=== PATIENT | female | born 1980 | race Caucasian/White ===

== ENCOUNTER 2019-01-24 15:29 | Emergency (ER) | payer OTHER ==
[~2019-01-24] VITALS: Ht 167.6 cm; Wt 68.0 kg
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
--- NOTE | 2019-01-24 15:45 | NUR ---
SEEN BY KAE ROBERTSON.
--- NOTE | 2019-01-24 15:58 | NUR ---
SEEN BY VOLODYMYR FROM [employer].
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
[2019-01-24] MEDS ORDERED: ALBUTEROL FS 2.5 MG/0.5 ML VIAL.NEB ONE (16:25)
[2019-01-24] MEDS ORDERED: ALBUTEROL FS 2.5 MG/3 ML VIAL.NEB ONE (16:25)
[2019-01-24] MEDS ORDERED: THIAMINE HCL 100 MG TABLET ONE (16:29)
[2019-01-24] MEDS ORDERED: FOLIC ACID 1 MG TABLET ONE (16:29)
[2019-01-24] MEDS ORDERED: THIAMINE HCL 100 MG TABLET PO ONE (16:30)
[2019-01-24] MEDS ORDERED: IV D5W 500 ML IV ONE (16:30)
[2019-01-24] MEDS ORDERED: predniSONE 20 MG TABLET ONE (16:30)
[2019-01-24] MEDS ORDERED: LORAZEPAM INJ 2 MG/ML VIAL ONE (16:30)
[2019-01-24] MEDS ORDERED: IV NS 0.9% 1,000 ML BAG IV ONE (16:30)
[2019-01-24] MEDS ORDERED: FOLIC ACID 1 MG TABLET PO ONE (16:30)
[2019-01-24] MEDS ORDERED: LORAZEPAM INJ 2 MG/ML VIAL IVP ONE (16:30)
[2019-01-24] MEDS ORDERED: predniSONE 20 MG TABLET PO ONE (16:30)
[2019-01-24] MEDS ORDERED: IPRATROPIUM NEB FS 0.5 MG/2.5 ML AMPUL.NEB NEB ONE (16:30)
[2019-01-24] MEDS ORDERED: ALBUTEROL FS 2.5 MG/3 ML VIAL.NEB NEB ONE (16:30)
[2019-01-24 16:31] LABS: BASOPHILS # (AUTO) 0.1 /CMM (0.0-0.2); BASOPHILS % (AUTO) 1.5 % (0.0-2.0); EOSINOPHILS % (AUTO) 1.1 % (0.0-6.0); HEMATOCRIT 37 % (33-45); HEMOGLOBIN 11.8 g/dL (11.5-14.8); LYMPHOCYTES # (AUTO) 1.8 /CMM (0.8-4.8); MEAN CORPUSCULAR HGB CONC 32 g/dl (31.0-36.0); MEAN CORPUSCULAR VOLUME 87 fL (82-100); MONOCYTES # (AUTO) 0.5 /CMM (0.1-1.30); MONOCYTES % (AUTO) 8.2 % (2.0-12.0); NEUTROPHILS # (AUTO) 3.1 /CMM (1.8-8.9); NEUTROPHILS % (AUTO) 56.2 % (43.0-81.0); PLATELET COUNT (AUTO) 346 /CMM (150-450); RED BLOOD CELL COUNT(AUTO) 4.25 MIL/uL (4.0-5.2); WHITE BLOOD COUNT (AUTO) 5.5 K/uL (4.3-11.0)
[2019-01-24 16:49] LABS: ALBUMIN 4.1 g/dL (3.4-5.0); BILIRUBIN,DIRECT 0.1 mg/dL (0.0-0.2); BILIRUBIN,TOTAL 0.4 mg/dL (0.2-1.0); CALCIUM, SERUM 8.7 mg/dL (8.5-10.1); CREATININE 0.8 mg/dL (0.6-1.3); POTASSIUM 3.4 mmol/L (3.5-5.1); TOTAL PROTEIN, SERUM 8.4 g/dL (6.4-8.2)
--- NOTE | 2019-01-24 17:26 | NUR ---
Patient is resting comfortably in bed with eyes closed. Easily aroused. VSS
--- NOTE | 2019-01-24 18:07 | NUR ---
BEATA ROBERTSON WAS AT BEDSIDE TALKING TO PT. PT STATES [facility] WILL TAKE HER AND WILL SEND A TAXI FOR HER. MEDICALLY CLEARED. FER D/C'D. DISCHARGE IN STABLE CONDITION.
[2019-01-24 18:10] VITALS: BP 160/92
== END 2019-01-24 18:10 | disposition home or self-care (01) ==
LOC: ER 15:29
DX: J45.901 Unspecified asthma with (acute) exacerbation (principal); F10.10 Alcohol abuse, uncomplicated; F17.210 Nicotine dependence, cigarettes, uncomplicated; Y08.89XA Assault by other specified means, initial encounter; Y93.89 Activity, other specified; Y92.89 Other specified places as the place of occurrence of the external cause; Y99.8 Other external cause status; Y90.5 Blood alcohol level of 100-119 mg/100 ml
CPT/HCPCS: 36415; 80048; 80076; 80307; 84702; 85025; 94640 ×2; 96374; 99284; 99406; J2060; J7030; J7060; J7512; G0480